=== PATIENT | male | born 1985 | race Caucasian/White ===

== ENCOUNTER 2019-01-01 15:17 | Outpatient (REF) | payer BC, SELFPAY ==
[2019-01-01 18:42] LABS: Absolute Basophil Count 0.01 k/cumm (0.0-0.2); Absolute Eosinophil Count 0.07 k/cumm (0.0-0.7); Absolute Lymphocyte Count 1.17 k/cumm (1.2-3.4); Absolute Monocyte Count 0.39 k/cumm (0.11-0.7); Absolute Neutrophil Count 4.04 k/cumm (1.2-6.7); Basophils % 0.2; Eosinophils % 1.2; HCT 42.2 % (40.0-50.0); HGB 14.2 g/dL (13.5-17.5); Lymphocytes % 20.6; Mean Corp. HGB Concentration 33.6 g/dL (32.0-36.0); Mean Corpuscular Hemoglobin 28.9 pg (27.0-33.0); Mean Corpuscular Volume 85.9 fL (80-95); Monocytes % 6.9; Neutrophils % 71.1; Platelet Count 191 x1000/uL (130-400); RBC 4.91 m/cumm (4.50-6.00); RBC Distribution Width 12.7 % (11.8-14.1); White Blood Cell Count 5.68 k/cumm (4.4-10.8)
[2019-01-01 19:03] LABS: ALT 98 U/L (16-63); AST 39 U/L (15-37); Albumin 3.6 g/dL (3.4-5.0); Alkaline Phosphatase 67 U/L (46-116); Anion Gap 11.4 mmol/L (3-11); BUN 10 mg/dL (7-18); Bilirubin, Total 0.4 mg/dL (0.2-1.0); CO2 27.6 mmol/L (21.0-32.0); CREATININE 1.05 mg/dL (0.70-1.30); Calcium 8.3 mg/dL (8.5-10.1); Chloride 102 mmol/L (98-107); Ferritin 395 ng/mL (8-388); Glucose 130 mg/dL (70-100); Potassium 3.7 mmol/L (3.5-5.1); Sodium 141 mmol/L (136-145); Total Protein 6.9 g/dL (6.4-8.2)
== END 2019-01-01 15:37 ==
LOC: NCHCN 15:17
PROVIDERS: PCP Family Medicine; Visit Provider Family Medicine
DX: R50.9 Fever, unspecified (principal); R74.8 Abnormal levels of other serum enzymes
CPT/HCPCS: 80053; 82728; 85025

== ENCOUNTER 2019-01-03 01:18 | Outpatient (CLI) | payer BC, SELFPAY ==
--- NOTE | 2019-01-03 08:00 | DI.US_ITS ---
SYMPTOM/DIAGNOSIS: ELEVATED LIVER ENZYMES, R74.8 ABDOMEN ULTRASOUND: Routine examination. Comparison CT scan is 12/23/13. The aorta is unremarkable. The inferior vena cava is unremarkable. The liver measures 16.1 cm. in length. There is diffuse increased echogenicity of the liver consistent with fatty infiltration. No evidence of a hepatic mass is seen. The gallbladder is unremarkable. No stones, sludge or gallbladder wall thickening is seen. The common duct is within normal limits at .2 cm. The pancreas and kidneys are unremarkable. The spleen is mildly enlarged measuring 14.1 cm. It is otherwise unremarkable. IMPRESSION: 1. Hepatic steatosis. 2. Mild splenomegaly.
== END 2019-01-03 01:38 ==
PROVIDERS: PCP Family Medicine; Visit Provider Family Medicine
DX: K76.0 Fatty (change of) liver, not elsewhere classified (principal); R16.1 Splenomegaly, not elsewhere classified; R74.8 Abnormal levels of other serum enzymes
CPT/HCPCS: 76700

== ENCOUNTER 2019-07-18 13:05 | Outpatient (REF) | payer SELFPAY ==
[2019-07-18 13:31] LABS: HCT 43.5 % (40.0-50.0); HGB 14.7 g/dL (13.5-17.5); Mean Corp. HGB Concentration 33.8 g/dL (32.0-36.0); Mean Corpuscular Hemoglobin 28.9 pg (27.0-33.0); Mean Corpuscular Volume 85.6 fL (80-95); Mean Platelet Volume 11.7 fL (8.0-11.0); Platelet Count 217 x1000/uL (130-400); RBC 5.08 m/cumm (4.50-6.00); RBC Distribution Width 13.1 % (11.8-14.1); White Blood Cell Count 5.52 k/cumm (4.4-10.8)
[2019-07-18 13:41] LABS: ALT 62 U/L (16-63); AST 25 U/L (15-37); Alkaline Phosphatase 36 U/L (46-116); Anion Gap 8.4 mmol/L (3-11); BUN 13 mg/dL (7-18); Bilirubin, Total 0.4 mg/dL (0.2-1.0); CO2 29.6 mmol/L (21.0-32.0); CREATININE 1.12 mg/dL (0.70-1.30); Calcium 8.5 mg/dL (8.5-10.1); Chloride 105 mmol/L (98-107); Glucose 92 mg/dL (74-106); Potassium 4.2 mmol/L (3.5-5.1); Sodium 143 mmol/L (136-145); Total Protein 6.8 g/dL (6.4-8.2)
== END 2019-07-18 13:25 ==
LOC: NCHCN 13:05
PROVIDERS: PCP Family Medicine; Visit Provider Family Medicine
DX: K76.0 Fatty (change of) liver, not elsewhere classified (principal)
CPT/HCPCS: 80053; 85027

== ENCOUNTER 2021-06-19 13:55 | Outpatient (REF) | payer OTHER, SELFPAY ==
[2021-06-19 15:25] LABS: ALT 74 U/L (16-63); AST 23 U/L (15-37); Albumin 3.8 g/dL (3.4-5.0); Alkaline Phosphatase 62 U/L (46-116); BUN 21 mg/dL (7-18); Bilirubin, Total 0.4 mg/dL (0.2-1.0); Calcium 9.1 mg/dL (8.5-10.1); Chloride 106 mmol/L (98-107); Glucose 94 mg/dL (74-106); Potassium 4.4 mmol/L (3.5-5.1); Sodium 141 mmol/L (136-145); Total Protein 7.3 g/dL (6.4-8.2)
== END 2021-06-19 13:56 | disposition home or self-care (01) ==
LOC: NCHCN 13:55
PROVIDERS: PCP Family Medicine; Visit Provider Family Medicine
DX: K76.0 Fatty (change of) liver, not elsewhere classified (principal)
CPT/HCPCS: 80053

== ENCOUNTER 2022-06-25 12:53 | Outpatient (REF) | payer BC, SELFPAY ==
[2022-06-25 15:00] LABS: ALT 45 U/L (16-63); AST 26 U/L (15-37); Albumin 4.2 g/dL (3.4-5.0); Alkaline Phosphatase 51 U/L (46-116); Bilirubin, Direct 0.1 mg/dL (0.0-0.2); Bilirubin, Total 0.4 mg/dL (0.2-1.0)
[2022-06-28 09:38] LABS: Hepatitis C Ab w Rflx HCV PCR Negative (Negative)
[2022-06-28 10:35] LABS: Hepatitis B Surface Ag Negative (Negative)
[2022-06-28 12:48] LABS: Alpha 1 Antitrypsin,Serum 135 mg/dL (90-200)
== END 2022-06-25 12:54 | disposition home or self-care (01) ==
LOC: NCHCN 12:53
PROVIDERS: PCP Family Medicine; Visit Provider Family Medicine
DX: K76.0 Fatty (change of) liver, not elsewhere classified (principal); R16.1 Splenomegaly, not elsewhere classified; Z11.59 Encounter for screening for other viral diseases
CPT/HCPCS: 80076; 86803; 87340; 82103

== ENCOUNTER 2024-03-16 12:27 | Outpatient (REF) | payer BC, SELFPAY ==
[2024-03-16 15:02] LABS: Abs Immature Grans 0.02 10^3/uL (0.0-0.06); Absolute Basophil Count 0.02 10^3/uL (0.0-0.2); Absolute Eosinophil Count 0.11 10^3/uL (0.0-0.7); Absolute Monocyte Count 0.64 10^3/uL (0.1-0.8); Absolute Neutrophil Count 5.47 10^3/uL (1.2-6.7); Basophils % 0.3 %; Eosinophils % 1.5 %; HCT 42.4 % (40.0-50.0); HGB 14.2 g/dL (13.5-17.5); Immature Grans % 0.3 %; Lymphocytes % 16.1 %; MCHC 33.5 % (32.0-36.0); MCV 87 fL (80-95); MPV 11.5 fL (8.0-11.0); Monocytes % 8.6 %; Neutrophils % 73.2 %; Platelet Count 172 10^3/uL (130-400); RBC 4.89 10^6/uL (4.36-5.78); RDW 12.2 % (11.8-14.1); RDW-SD 38.7 fL; WBC 7.46 10^3/uL (4.4-10.8)
[2024-03-16 16:54] LABS: ALT 26 U/L (16-63); AST 17 U/L (15-37); Alkaline Phosphatase 58 U/L (46-116); Anion Gap 11.9 mmol/L (3-11); BUN 19 mg/dL (7-18); Bilirubin, Total 0.57 mg/dL (0.2-1.0); CO2 27.1 mmol/L (21.0-32.0); CREATININE 1.1 mg/dL (0.70-1.30); Calcium 9.3 mg/dL (8.5-10.1); Chloride 103 mmol/L (98-107); Estimated GFR 88.67 (mL/min/1.73m2); Glucose 111 mg/dL (74-106); Potassium 3.9 mmol/L (3.5-5.1); Sodium 142 mmol/L (136-145); Total Protein 7.4 g/dL (6.4-8.2)
== END 2024-03-16 12:28 | disposition home or self-care (01) ==
LOC: NCHCN 12:27
PROVIDERS: PCP Family Medicine; Visit Provider Student in an Organized Health Care Education/Training Program
DX: L28.2 Other prurigo (principal)
CPT/HCPCS: 80053; 85025

== ENCOUNTER 2024-06-12 21:05 | Outpatient (REF) | payer OTHER, SELFPAY ==
[2024-06-12 21:33] LABS: Abs Immature Grans 0.05 10^3/uL (0.0-0.06); Absolute Basophil Count 0.04 10^3/uL (0.0-0.2); Absolute Lymphocyte Count 2.65 10^3/uL (1.2-3.4); Absolute Monocyte Count 0.81 10^3/uL (0.1-0.8); Basophils % 0.3 %; Eosinophils % 7.2 %; HCT 42.6 % (40.0-50.0); Immature Grans % 0.4 %; Lymphocytes % 20.6 %; MCH 28.6 pg (27.0-33.0); MCHC 32.9 % (32.0-36.0); MCV 87 fL (80-95); MPV 11.6 fL (8.0-11.0); Monocytes % 6.3 %; Neutrophils % 65.2 %; Platelet Count 194 10^3/uL (130-400); RDW 12.9 % (11.8-14.1); RDW-SD 40.4 fL; WBC 12.86 10^3/uL (4.4-10.8)
[2024-06-12 21:38] LABS: Absolute Eosinophil Count 0.93 10^3/uL (0.0-0.7); Absolute Neutrophil Count 8.38 10^3/uL (1.2-6.7)
[2024-06-12 21:43] LABS: ALT 32 U/L (16-63); AST 22 U/L (15-37); Albumin 3.7 g/dL (3.4-5.0); Alkaline Phosphatase 84 U/L (46-116); Anion Gap 5.2 mmol/L (3-11); BUN 15 mg/dL (7-18); Bilirubin, Total 0.31 mg/dL (0.2-1.0); CO2 31.8 mmol/L (21.0-32.0); CREATININE 1.1 mg/dL (0.70-1.30); Calcium 8.6 mg/dL (8.5-10.1); Chloride 104 mmol/L (98-107); Estimated GFR 88.12 (mL/min/1.73m2); Glucose 83 mg/dL (74-106); Lipase 39 U/L (<78); Potassium 4.1 mmol/L (3.5-5.1); Sodium 141 mmol/L (136-145); Total Protein 6.8 g/dL (6.4-8.2)
== END 2024-06-12 21:06 | disposition home or self-care (01) ==
LOC: LBN 21:05
PROVIDERS: PCP Family Medicine; Visit Provider Nurse Practitioner Family
DX: R68.81 Early satiety (principal)
CPT/HCPCS: 80053; 83690; 85025

== ENCOUNTER 2024-06-14 14:10 | Outpatient (CLI) | payer OTHER, SELFPAY | END 2024-06-14 14:11 | disposition home or self-care (01) | LOC: LBO 14:15 | PROVIDERS: PCP Family Medicine; Visit Provider Nurse Practitioner Family | DX: R68.81 Early satiety (principal) | CPT/HCPCS: 36415; 83013 ==

== ENCOUNTER 2024-10-11 12:07 | Outpatient (CLI) | payer OTHER, SELFPAY ==
[2024-10-11 12:10] LABS: Abs Immature Grans 0.01 10^3/uL (0.0-0.06); Absolute Basophil Count 0.03 10^3/uL (0.0-0.2); Absolute Eosinophil Count 0.16 10^3/uL (0.0-0.7); Absolute Lymphocyte Count 2.08 10^3/uL (1.2-3.4); Absolute Monocyte Count 0.48 10^3/uL (0.1-0.8); Absolute Neutrophil Count 2.79 10^3/uL (1.2-6.7); Basophils % 0.5 %; Eosinophils % 2.9 %; HCT 42.3 % (40.0-50.0); HGB 14.3 g/dL (13.5-17.5); Immature Grans % 0.2 %; Lymphocytes % 37.5 %; MCH 28.9 pg (27.0-33.0); MCHC 33.8 % (32.0-36.0); MCV 86 fL (80-95); MPV 10.3 fL (8.0-11.0); Monocytes % 8.6 %; Neutrophils % 50.3 %; Platelet Count 192 10^3/uL (130-400); RBC 4.94 10^6/uL (4.36-5.78); RDW 12.9 % (11.8-14.1); RDW-SD 39.7 fL; WBC 5.55 10^3/uL (4.4-10.8)
[2024-10-11 12:51] LABS: TSH (W/Ref FT4) 1.99 uIU/mL (0.36-3.74)
[2024-10-11 22:56] LABS: Thyroglobulin Antibody <15 U/mL (<=60); Thyroperoxidase Antibody <28 U/mL (<=60)
[2024-10-15 19:10] LABS: Alternaria Tenuis IgE <0.10 kU/L (<0.70); Aspergillus Fumigatus IgE <0.10 kU/L (<0.70); Banana, IgE <0.10 kU/L (<0.70); Barley, IgE <0.10 kU/L (<0.70); Bermuda Grass IgE <0.10 kU/L (<0.70); Black/White Pepper IgE <0.10 kU/L (<0.70); Cacao/Cocoa, IgE <0.10 kU/L (<0.70); Cinnamon, IgE <0.10 kU/L (<0.70); Cladosporium IgE <0.10 kU/L (<0.70); Cockroach IgE <0.10 kU/L (<0.70); D Farinae IgE <0.10 kU/L (<0.70); D Pteronyssinus IgE <0.10 kU/L (<0.70); Dog Dander IgE <0.10 kU/L (<0.70); Egg Whole IgE <0.10 kU/L (<0.70); Elm IgE <0.10 kU/L (<0.70); Fusarium moniliforme, IgE <0.10 kU/L (<0.70); Milk, IgE <0.10 kU/L (<0.70); Penicillium chrysogenum IgE <0.10 kU/L (<0.70); Red Sorrel IgE <0.10 kU/L (<0.70); Rough Pigweed IgE <0.10 kU/L (<0.70); Silver Birch IgE 1.06 kU/L (<0.70); Walnut Tree IgE <0.10 kU/L (<0.70); White Potato, IgE <0.10 kU/L (<0.70)
[2024-10-16 17:38] LABS: Baker's Yeast, IgE <0.10 kU/L (<0.70); Beef IgE <0.10 kU/L (<0.70); Broccoli IgE <0.10 kU/L (<0.70); Cat Epithelium IgE <0.10 kU/L (<0.70); Cocklebur IgE 0.12 kU/L (<0.70); Eastern Sycamore IgE <0.10 kU/L (<0.70); Giant Ragweed IgE <0.10 kU/L (<0.70); Lamb's Quarter IgE <0.10 kU/L (<0.70); Oak IgE 0.22 kU/L (<0.70); Onion, IgE 0.11 kU/L (<0.70); Short Ragweed IgE <0.10 kU/L (<0.70); Soybean IgE <0.10 kU/L (<0.70); Stemphyllium IgE <0.10 kU/L (<0.70); Strawberry, IgE <0.10 kU/L (<0.70); Timothy Grass IgE <0.10 kU/L (<0.70)
[2024-10-16 17:58] LABS: Epicoccum purpurascens IgE <0.10 kU/L (<0.70); Wormwood IgE <0.10 kU/L (<0.70)
[2024-10-18 18:08] LABS: CLASS 0; Cedar Red IgE <0.10 kU/L (<0.35); Rhodotorula IgE <0.35 kU/L (<0.35)
== END 2024-10-11 12:08 | disposition home or self-care (01) ==
LOC: LBO 12:08
PROVIDERS: PCP Family Medicine; Visit Provider Physician Assistant
DX: K29.70 Gastritis, unspecified, without bleeding (principal); R53.83 Other fatigue; Z83.49 Family history of other endocrine, nutritional and metabolic diseases; L50.8 Other urticaria; L50.3 Dermatographic urticaria
CPT/HCPCS: 36415; 86003; 86376; 84443; 85025